=== PATIENT | female | born 1980 | race Caucasian/White ===

== ENCOUNTER 2017-10-20 07:09 | Observation (INO) ==
[2017-10-20] MEDS ORDERED: 0.9 % Sodium Chloride 1,000 ML IVC ONE (07:22)
[2017-10-20] MEDS ORDERED: Isovue-370 500 ML INFUS..BTL IV ONE ×2 (07:23→07:24)
--- NOTE | 2017-10-20 07:29 | Emergency Department Note ---
Disposition Clinical Impression: Left-sided weakness CVA (cerebral vascular accident) Qualifiers: CVA mechanism: unspecified Qualified Code(s): I63.9 - Cerebral infarction, unspecified Disposition: Admitted As Inpatient Condition: Fair Referrals: Gwen Arguello [Primary Care Provider] - Eddie Christianson [Family Provider] - Forms: ED Satisfaction Letter Time of Disposition: 09:08 Neuro HPI - General Chief Complaint: ED Neuro Symptoms/Deficit Stated Complaint: CP, L arm and leg weakness Time Seen by Provider: 10/20/17 07:12 Source: patient, family Mode of arrival: ambulatory Limitations: no limitations Nursing Notes Reviewed: Yes Vital Signs Reviewed: Yes - History of Present Illness HPI Narrative: 37-year-old female otherwise healthy presents for evaluation of neuro symptoms. Patient states that she developed left arm weakness and contractures approximately 2 hours prior to arrival. Patient also has decreased sensation of her left side with some weakness of her left lower extremity. Patient denies any fevers. Denies any other localized weakness. No slurred speech or facial droop. Patient did state she had some chest pain prior to the onset of the symptoms. 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 Patient denies any abdominal pain. Patient denies history of strokes or heart attacks. - Related Data Home Medications: Home Medications Medication Instructions Recorded Confirmed No Known Home Drugs 10/20/17 10/20/17 Allergies/Adverse Reactions: Allergies Allergy/AdvReac Type Severity Reaction Status Date / Time No Known Allergies Allergy Verified 10/20/17 07:12 All systems ED: reviewed and negative except as stated. Constitutional: Denies: fever Cardiovascular: Reports: chest pain Respiratory: Denies: cough, dyspnea Gastrointestinal: Denies: abdominal pain, nausea, vomiting Past Medical History - Past Medical History Source: patient Medical history: Reports: no medical history Psychiatric history: Reports: no psych history - Social History Smoking Status: Current every day smoker Alcohol use: Reports: none Drug use: Reports: none Physical Exam - General Limitations: no limitations General appearance: in no apparent distress, anxious - Head Head exam: atraumatic, normocephalic, normal inspection - Eye Eye exam: Present: normal appearance, PERRL, EOMI - ENT ENT exam: normal exam, mucous membranes moist - Neck Neck exam: Present: normal inspection - Chest Chest inspection: Present: normal inspection, symmetric chest wall rise - Respiratory Respiratory exam: Present: normal lung sounds bilaterally. Absent: respiratory distress - Cardiovascular Cardiovascular exam: Present: regular rate, normal rhythm. Absent: systolic murmur - Abdominal Exam Abdominal exam: Present: soft - Expanded Lower Extremity Exam Neurovascular/Tendon exam: Present: normal capillary refill. Absent: pulse deficit - Neurological Exam Neurological exam: Present: alert, oriented X3, CN II-XII intact - Expanded Neurological Exam Patient oriented to: Present: person Speech: Present: fluid speech Cranial nerves: EOM function (II, III, IV, ): Normal, facial sensation (V): Normal, facial palsy (VII): Normal, spinal accessory function (XI): Normal Cerebellar function: finger to nose: Normal Motor strength - LUE: 4/5 (Held in contracture of the elbow) Motor strength - RUE: 5/5 Motor strength - LLE: 4/5 Motor strength - RLE: 5/5 Sensory exam upper extremity: light touch: Abnormal Left Sensory exam lower extremity: light touch: Abnormal Left Coma Scale Eye Opening: Spontaneous Coma Scale Motor Response: Obeys Commands Coma Scale Verbal Response: Oriented Coma Scale Total: 15 Course Course Narrative: Patient seen and examined. Patient does have neurologic deficits. Sensory deficits on the left upper and lower show me with contracture of the left upper extremity. Stroke alert was called upon arrival. Given the patient's age as well as initial prodromal chest pain. CT angiogram of the neck and the head was obtained. - Reevaluation(s) Reevaluation #1: Patient seen and examined. Patient's resting comfortably. Time: 08:03 Reevaluation #2: Patient was seen and examined. Patient's resting comfortably. Neuro exam is unchanged. Discussed plan of care with the patient. Patient will be admitted the hospital service for further evaluation monitoring. Discussed CT findings and workup to date. Time: 09:07 - Consultations Consultation #1: Negative CTH per radiology. Time: 07:54 Consultation #2: Spoke with [facility] neurology who will evaluate the patient. Time: 08:00 Consultation #3: No TPA candidate per [facility] neurology. Time: 08:15 Vital Signs Temperature 98.3 F 10/20/17 07:10 Pulse Rate 73 10/20/17 07:10 Respiratory Rate 20 10/20/17 07:10 Blood Pressure 129/87 10/20/17 07:10 O2 Sat by Pulse Oximetry 100 10/20/17 07:10 Temperature 98.3 F 10/20/17 07:13 Pulse Rate 70 10/20/17 09:30 Respiratory Rate 20 10/20/17 09:30 Blood Pressure 118/70 10/20/17 09:30 O2 Sat by Pulse Oximetry 98 10/20/17 09:30 Oxygen Delivery Oxygen Delivery Room Air Neuro Symptoms/Deficit - MDM Narrative Medical decision making narrative: Patient presents with acute neurologic deficits probably 2 hours prior to ED arrival. Patient was a stroke alert upon arrival. Patient was evaluated by [facility] neurology Javon the patient not to be a TPA candidate. States that this is less likely central cause of her symptoms. However recommends continuing stroke evaluation with an MRI. Patient likely has peripheral cause of her deficits. Patient will be given aspirin. Patient will also be admitted to the hospitals for further evaluation and monitoring. At this point the patient's been resting comfortably in the ED with no acute distress. - Lab Data Lab results reviewed: Yes I reviewed the patient's lab results. Result diagrams: 10/20/17 07:23 10/20/17 07:23 Lab Results 10/20/17 10/20/17 10/20/17 Range/Units 07:23 07:23 07:23 WBC 13.2 H (4.3-11.1) K/mcL RBC 4.83 (3.82-4.97) M/mcL Hgb 15.0 (11.5-15.4) g/dL Hct 44.0 (35.3-44.9) % MCV 91.1 (83.0-100.0) fL MCH 31.1 (28.0-33.3) pg MCHC 34.1 (31.6-35.5) g/dL RDW 12.4 (11.5-14.5) % Plt Count 335 (140-400) K/mcL MPV 9.9 (9.4-12.4) fL Immature Gran % 0.7 (0-4) % Seg Neutrophils % 62.5 % Lymphocytes % 22.3 % Monocytes % 8.7 % Eosinophils % 5.3 % Basophils % 0.5 % Neutrophils # 8.3 (1.6-8.9) K/mcL Lymphocytes # 3.0 (0.6-4.6) K/mcL Monocytes # 1.2 (0.0-1.3) K/mcL Eosinophils # 0.7 H (0.0-0.6) K/mcL Basophils # 0.1 (0.0-0.2) K/mcL PT 12.7 H (9.4-12.1) Seconds INR 1.1 APTT 41.0 H (26.0-36.0) Seconds Sodium 138 (136-145) mEq/L Potassium 3.8 (3.5-5.1) mEq/L Chloride 106 (98-107) mEq/L Carbon Dioxide 27 (23-29) mEq/L BUN 18 (6-20) mg/dL Creatinine 1.03 (0.60-1.20) mg/dL Est GFR ( Amer) > 60 (> 60) Est GFR (Non-Af Amer) > 60 (> 60) BUN/Creatinine Ratio 17 (6-26) Glucose 99 (70-105) mg/dL Calculated Osmolality 288 (280-300) Calcium 9.5 (8.6-10.3) mg/dL Troponin I < 0.03 (< 0.04) ng/mL - Radiology Data Radiology results reviewed: Yes I reviewed the patient's radiology results. - EKG Data EKG attestation: Yes I reviewed and interpreted this EKG. EKG shows normal: sinus rhythm Rate: normal Rhythm: NSR Bates/QRS: normal Voltage: increased voltage throughout T wave inversions noted in: v1 Interpretation: no acute changes, nonspecific ST-T wave changes NIH Stroke Scale - Level of Consciousness LOC: Alert - LOC Questions LOC Questions: Answers both correctly - LOC Commands LOC Commands: Performs both correctly - Best Gaze Best Gaze: Normal - Visual Visual: No visual loss - Facial Palsy Facial Palsy: Normal - Motor Arms Motor Arm-Left: Some effort against gravity, limb drifts to bed Motor Arm-Right: No drift for 10 seconds - Motor Legs Motor Leg-Left: No drift for 5 seconds Motor Leg-Right: No drift for 5 seconds - Limb Ataxia Limb Ataxia: Absent of affected limb too weak to perform exam - Sensory Sensory: Mild to moderate loss, "not as sharp" - Best Language Best Language: No aphasia - Dysarthria Dysarthria: Normal - Extinction and Inattention Extinction and Inattention: Normal - NIHSS Total Score NIHSS Total Score: 3 TPA Checklist - Eligibilty for IV tPA 1. LKW equal to or less than 4.5 hours be before treatment: No 2. Clinical diagnosis of ischemic stroke causing deficit: No 3. Age 18 years or older: No - LKW: 3-4.5 hrs Add. Warnings/Precautions Patient/family understanding: The patient/family members have been counseled and understood the risk, benefit , and alternatives of treatment. Drew - Drew Situation: Demographics Background: Presenting Complaint Assessment: Vital Signs, Patient/Family Expectation Recommendation: Barrier(s) to disposition, Recommendation based on pending studies, treatments, or consults S.[email or web address] Report Given to: Dr. Roberto Russell Repor Time: 09:48
[2017-10-20 07:30] LABS: Basophils # 0.1 K/mcL (0.0-0.2); Basophils % 0.5 %; Eosinophils # 0.7 K/mcL (0.0-0.6); Eosinophils % 5.3 %; Immature Granulocytes % 0.7 % (0-4); Lymphocytes % 22.3 %; Mean Corpuscular HGB Conc 34.1 g/dL (31.6-35.5); Mean Corpuscular Hemoglobin 31.1 pg (28.0-33.3); Mean Corpuscular Volume 91.1 fL (83.0-100.0); Mean Platelet Volume 9.9 fL (9.4-12.4); Monocytes # 1.2 K/mcL (0.0-1.3); Monocytes % 8.7 %; Neutrophils # 8.3 K/mcL (1.6-8.9); Platelet Count 335 K/mcL (140-400); Red Blood Count 4.83 M/mcL (3.82-4.97); Red Cell Distribution Width 12.4 % (11.5-14.5); Segmented Neutrophils % 62.5 %
[2017-10-20 07:37] LABS: INR 1.1; Prothrombin Time 12.7 Seconds (9.4-12.1)
[2017-10-20 07:46] LABS: BUN/Creatinine Ratio 17 (6-26); Blood Urea Nitrogen 18 mg/dL (6-20); Calcium 9.5 mg/dL (8.6-10.3); Carbon Dioxide 27 mEq/L (23-29); Chloride 106 mEq/L (98-107); Glucose 99 mg/dL (70-105); Osmolality,Calculated 288 (280-300); Potassium 3.8 mEq/L (3.5-5.1); Sodium 138 mEq/L (136-145); eGFR For Non-African Americans > 60 (> 60)
[2017-10-20 07:49] LABS: Troponin I < 0.03 ng/mL (< 0.04)
[2017-10-20] MEDS ORDERED: Aspirin 81 MG TAB.CHEW PO ONE (08:14)
--- NOTE | 2017-10-20 09:07 | Emergency Department Note ---
Disposition Clinical Impression: Left-sided weakness CVA (cerebral vascular accident) Qualifiers: CVA mechanism: unspecified Qualified Code(s): I63.9 - Cerebral infarction, unspecified Disposition: Admitted As Inpatient Condition: Fair Referrals: Gwen Arguello [Primary Care Provider] - Eddie Christianson [Family Provider] - Forms: ED Satisfaction Letter General Adult HPI - General Chief complaint: ED Neuro Symptoms/Deficit Stated complaint: CP, L arm and leg weakness Time Seen by Provider: 10/20/17 07:12 Source: patient, family Mode of arrival: ambulatory Limitations: no limitations - History of Present Illness Pain Scale: 10 - Related Data Home Medications Medication Instructions Recorded Confirmed No Known Home Drugs 10/20/17 10/20/17 Allergies Allergy/AdvReac Type Severity Reaction Status Date / Time No Known Allergies Allergy Verified 10/20/17 07:12 Constitutional: Denies: fever Cardiovascular: Reports: chest pain Respiratory: Denies: cough, dyspnea Gastrointestinal: Denies: abdominal pain, nausea, vomiting Past Medical History - Past Medical History Medical history: Reports: no medical history Psychiatric history: Reports: no psych history - Social History Smoking Status: Current every day smoker Alcohol use: Reports: none Drug use: Reports: none Physical Exam - General Limitations: no limitations General appearance: in no apparent distress, anxious Course - Reevaluation(s) Reevaluation #1: Attestation note I examined this patient and my medical decision-making was reviewed with the emergency medicine resident. I agree with the documented findings, disposition and treatment plan as described except to the extent set forth below. Patient seen with emergency medicine resident Alison Beverly, Please see a copy of his note for details of the H&P, ED evaluation, management and disposition. I have independently evaluated the patient and confirmed appropriate portions of the history and physical exam. Briefly: 47-year-old female on no other past medical history presents with onset at 2 hours ago of rigidity and pain and weakness of her left upper extremity and left lower extremity and chest pain. Cranial nerves are normal no prior history of CVA patient does not use illicit drugs there has been no trauma no occupational issues. Patient had noncontrast head CT read by radiology as no acute process. Labs the normal limits EKG shows sinus rhythm no acute ischemic changes. Due to the fact that the patient had to but appeared to be heart neuro findings as far as inability to extend the left upper extremity and is right-hand dominant visual and weakness in the hand and the forearm stroke alert was called [place] stroke was initiated the neurologist from the [facility] evaluated the patient and felt this was not eligible for TPA and in fact suggested possible conversion disorder. Patient was agreeable for admission here for further observation and workup. Provided 35 minutes critical care service for this patient. Admission disposition pending Time: 09:05 Vital Signs Temperature 98.3 F 10/20/17 07:10 Pulse Rate 73 10/20/17 07:10 Respiratory Rate 20 10/20/17 07:10 Blood Pressure 129/87 10/20/17 07:10 O2 Sat by Pulse Oximetry 100 10/20/17 07:10 Temperature 98.3 F 10/20/17 07:13 Pulse Rate 71 10/20/17 08:30 Respiratory Rate 20 10/20/17 08:30 Blood Pressure 128/93 10/20/17 08:30 O2 Sat by Pulse Oximetry 98 10/20/17 08:30 Oxygen Delivery Oxygen Delivery Room Air Medical Decision Making - Lab Data Result diagrams: 10/20/17 07:23 10/20/17 07:23 Lab Results 10/20/17 10/20/17 10/20/17 Range/Units 07:23 07:23 07:23 WBC 13.2 H (4.3-11.1) K/mcL RBC 4.83 (3.82-4.97) M/mcL Hgb 15.0 (11.5-15.4) g/dL Hct 44.0 (35.3-44.9) % MCV 91.1 (83.0-100.0) fL MCH 31.1 (28.0-33.3) pg MCHC 34.1 (31.6-35.5) g/dL RDW 12.4 (11.5-14.5) % Plt Count 335 (140-400) K/mcL MPV 9.9 (9.4-12.4) fL Immature Gran % 0.7 (0-4) % Seg Neutrophils % 62.5 % Lymphocytes % 22.3 % Monocytes % 8.7 % Eosinophils % 5.3 % Basophils % 0.5 % Neutrophils # 8.3 (1.6-8.9) K/mcL Lymphocytes # 3.0 (0.6-4.6) K/mcL Monocytes # 1.2 (0.0-1.3) K/mcL Eosinophils # 0.7 H (0.0-0.6) K/mcL Basophils # 0.1 (0.0-0.2) K/mcL PT 12.7 H (9.4-12.1) Seconds INR 1.1 APTT 41.0 H (26.0-36.0) Seconds Sodium 138 (136-145) mEq/L Potassium 3.8 (3.5-5.1) mEq/L Chloride 106 (98-107) mEq/L Carbon Dioxide 27 (23-29) mEq/L BUN 18 (6-20) mg/dL Creatinine 1.03 (0.60-1.20) mg/dL Est GFR ( Amer) > 60 (> 60) Est GFR (Non-Af Amer) > 60 (> 60) BUN/Creatinine Ratio 17 (6-26) Glucose 99 (70-105) mg/dL Calculated Osmolality 288 (280-300) Calcium 9.5 (8.6-10.3) mg/dL Troponin I < 0.03 (< 0.04) ng/mL
[2017-10-20] MEDS ORDERED: *HR* Enoxaparin 120 MG/0.8 ML SYRINGE SQ STA (10:08)
--- NOTE | 2017-10-20 11:23 | Internal Med History&Physical ---
Date of Encounter: 10/20/17 Time of Encounter: 11:00 Internal Medicine - H&P: HPI Admitted From: Home Plans for Post Hospital Care: Home History of present illness: Ms. Mahoney is a 37 year old female that history of previous uUTI, left knee surgery who presented with LLE swelling. Pt reports that LLE swelling that developed a few days ago. 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 Pt denies any previous work up for DVT/ /such as doppler. She also denies any history DVT or PE. States while working all day yesterday, Thursday10/19/2017, she developed chest discomfort and LUE tingling sensation. Denies SOB, dizziness, or lightheadedness. Denies LUE edema. Denies neck or back pain. She denies of fever or chills, N/V, or diarrhea. Pt unaware of her fmhx as she is adopted. In ED pt was called into neuro call who did not think pt needed further CVA workup. Resident physician in ED did order CTA head and neck, results below Labs: WBS 13.2, Hgb 15.0, plt 335. PT 12.7, INR 1.1. Na 138, K 3.8, BUN 18, Cr 1.03 Troponin <0.03. Chest x ray Impression: Showed no significant findings. CTA head and neck CT/CT angio head IMPRESSION: No acute intracranial abnormality. Unremarkable CTA of the head and neck. D/ /20/2017 11:04:05 Leigha Gleason MD / dionicio CT head non-contrast CT/CT stroke alert head wo con IMPRESSION: No acute intracranial abnormality. Unremarkable CTA of the head and neck. D/ /20/2017 11:04:05 Leigha Gleason MD / dionicio Past Med Surg Social Fam HX - Past Medical History Medical history: no medical history Psychiatric history: no psych history - Past Surgical History Additional surgical history: left knee surgery - Social History Smoking Status: Current every day smoker Alcohol use: none Drug use: none Internal Medicine - H&P: Meds No Known Home Drugs 10/20/17 [History] 3 Allergy/AdvReac Type Severity Reaction Status Date / Time No Known Allergies Allergy Verified 10/20/17 07:12 All Systems PM: A 10-system review of systems was performed and is negative for pertinent findings except as documented above in the HPI. - Constitutional Vitals: Temp Pulse Resp BP Pulse Ox 98.3 F 70 20 116/80 99 10/20/17 07:13 10/20/17 10:58 10/20/17 11:02 10/20/17 11:02 10/20/17 10:30 General appearance: Present: A&O X 3, obese - Head Head exam: Present: atraumatic, normocephalic - Eye Eye exam: Present: PERRL, conjuntiva pink, sclera anicteric Pupils: Present: PERRL - Neck Neck exam general surgery: Present: supple, trachea midline. Absent: lymphadenopathy - Respiratory Respiratory exam: Present: CTAB. Absent: accessory muscle use, rales, rhonchi, wheezes - Cardiovascular Cardiovascular exam: Present: RRR, +S1, +S2. Absent: diastolic murmur, gallop, rubs, systolic murmur - GI/Abdominal GI/Abdominal exam: Present: normal bowel sounds, soft, no peritoneal signs. Absent: distended, tenderness - Extremities Exam Extremities exam: Present: warm, radial pulses palpable and symmetrical. Absent : calf tenderness, cyanotic, pedal edema - Neurological Exam Neurological exam: Present: CN II-XII intact, oriented X3, no focal deficits. Absent: pronater drift, facial droop, speech deficit - Skin Skin exam: Present: dry, intact Internal Med - H&P Results - Labs CBC & Chem 7: 10/20/17 07:23 10/20/17 07:23 - Assessment and plan (1) Chest pain Current Visit: Yes Status: Acute Assessment and plan: Initial troponin <0.03. Will cycle troponin. If Doppler positive for DVT, will check CTA chest as well. Pt saturation is currently 99% on room air. EKG ordered and pending. Chest x ray no significant findings. Qualifiers: Qualified Code(s): R07.9 - Chest pain, unspecified (2) Edema of left lower extremity Current Visit: Yes Status: Acute Assessment and plan: Checking LE doppler. Will give one time dose therapeutic Lovenox for now. (3) Left-sided weakness Current Visit: Yes Status: Acute Assessment and plan: Will check neck and left shoulder x ray. Will check MRI brain. (4) Obesity Current Visit: Yes Status: Acute Assessment and plan: Life style modification such as diet and exercise recommended. Qualifiers: Qualified Code(s): E66.9 - Obesity, unspecified (5) Leukocytosis Current Visit: Yes Status: Acute Assessment and plan: Likely reactive. Will check CBC in am and will send UA. Qualifiers: Qualified Code(s): D72.829 - Elevated white blood cell count, unspecified - Time Spent With Patient Total time spent is greater than 50% in coordination of care (as documented) at patient's floor/unit and/or counseling patient: 25 - 35 minutes
[2017-10-20] MEDS ORDERED: Nitroglycerin 0.4 MG TAB.SUBL SL PRN (12:15)
[2017-10-20] MEDS ORDERED: Acetaminophen 325 MG TABLET PO PRN (12:15)
[2017-10-20] MEDS ORDERED: Naloxone 0.4 MG/ML INJ IVP PRN (12:15)
[2017-10-20 14:07] LABS: Troponin I < 0.03 ng/mL (< 0.04)
[2017-10-20 14:20] LABS: Thyroid Stimulating Hormone 2.326 mcIU/mL (0.340-5.600)
[2017-10-20 21:02] LABS: Bilirubin,Urine Negative (Negative); Blood,Urine Negative (Negative); Clarity,Urine Clear (Clear); Color,Urine Yellow (Yellow); Glucose,Urine (UA) Normal (Normal); Ketones,Urine Negative (Negative); Leukocyte Esterase,Urine Negative (Negative); Nitrite,Urine Negative (Negative); PH,Urine 7.5 pH Units (5.0-8.0); Protein,Urine Negative (Neg-Trace); Urobilinogen,Urine Normal (Normal)
[2017-10-20 21:30] LABS: Amphetamine Screen,Urine Negative ng/mL (Cutoff=1000); Barbiturate Screen,Urine Negative ng/mL (Cutoff=200); Benzodiazepines Screen,Urine Negative ng/mL (Cutoff=200); Cannabinoid Screen,Urine Negative ng/mL (Cutoff = 50); Cocaine Screen,Urine Negative ng/mL (Cutoff= 300); Opiate Screen,Urine Negative ng/mL (Cutoff=300); Phencyclidine Screen,Urine Negative ng/mL (Cutoff=25)
[2017-10-21] MEDS ORDERED: Acetaminophen 325 MG TABLET PO PRN (00:14)
[2017-10-21 00:41] LABS: Basophils # 0.1 K/mcL (0.0-0.2); Basophils % 0.7 %; Eosinophils # 0.8 K/mcL (0.0-0.6); Eosinophils % 6.6 %; Hematocrit 37.2 % (35.3-44.9); Immature Granulocytes % 0.7 % (0-4); Lymphocytes # 3.4 K/mcL (0.6-4.6); Lymphocytes % 29.8 %; Mean Corpuscular HGB Conc 33.9 g/dL (31.6-35.5); Mean Corpuscular Hemoglobin 30.4 pg (28.0-33.3); Mean Corpuscular Volume 89.6 fL (83.0-100.0); Monocytes # 1.2 K/mcL (0.0-1.3); Monocytes % 10.7 %; Neutrophils # 5.9 K/mcL (1.6-8.9); Platelet Count 268 K/mcL (140-400); Red Blood Count 4.15 M/mcL (3.82-4.97); Red Cell Distribution Width 12.6 % (11.5-14.5); Segmented Neutrophils % 51.5 %
[2017-10-21 00:43] LABS: Hemoglobin 12.6 g/dL (11.5-15.4)
[2017-10-21 00:45] LABS: INR 1.2; Prothrombin Time 13.6 Seconds (9.4-12.1)
[2017-10-21 00:55] LABS: Troponin I < 0.03 ng/mL (< 0.04)
[2017-10-21 00:56] LABS: Alanine Aminotransferase 9 Units/L (7-52); Albumin 3.5 g/dL (3.5-5.7); Albumin/Globulin Ratio 1.3 (1.1-2.2); Alkaline Phosphatase 73 Units/L (34-104); Aspartate Amino Transferase 13 Units/L (13-39); BUN/Creatinine Ratio 21 (6-26); Bilirubin,Total 0.3 mg/dL (0.3-1.0); Blood Urea Nitrogen 20 mg/dL (6-20); Calcium 8.8 mg/dL (8.6-10.3); Carbon Dioxide 25 mEq/L (23-29); Chloride 109 mEq/L (98-107); Chol/HDL Ratio 3.2 (0-4.9); Cholesterol 151 mg/dL (< 200); Globulin 2.6 g/dL (2.4-3.5); Glucose 114 mg/dL (70-105); HDL Cholesterol 47 mg/dL (40-59); LDL Cholesterol,Calculated 75 mg/dL (0-99); Magnesium 1.8 mg/dL (1.6-2.6); Osmolality,Calculated 289 (280-300); Potassium 3.8 mEq/L (3.5-5.1); Sodium 138 mEq/L (136-145); Total Protein 6.1 g/dL (6.4-8.9); Triglycerides 147 mg/dL (< 150); eGFR For Non-African Americans > 60 (> 60)
[2017-10-21] MEDS ORDERED: *HR* Enoxaparin 40 MG/0.4 ML SYRINGE SQ SCH (06:00)
[2017-10-21] MEDS ORDERED: Aspirin 81 MG TAB.CHEW PO SCH (09:00)
[2017-10-21 11:55] VITALS: BP 110/69
--- NOTE | 2017-10-21 12:00 | Discharge Summary ---
<Linad Ma - Last Filed: 10/21/17 13:58> Date of Encounter: 10/21/17 Time of Encounter: 11:56 - Discharge Diagnosis (1) Chest pain Priority: Primary Status: Acute Qualifiers: Qualified Code(s): R07.89 - Other chest pain; R07.8 - Other chest pain (2) Left-sided weakness Priority: Secondary Status: Acute (3) Edema of left lower extremity Priority: Secondary Status: Acute (4) Obesity Priority: Secondary Status: Acute Qualifiers: Obesity classification: adult class 3 (BMI >= 40) Serious obesity comorbidity presence: unspecified whether serious comorbidity present Qualified Code(s): E66.01 - Morbid (severe) obesity due to excess calories; Z68.41 - Body mass index (BMI) 40.0-44.9, adult Hospital course: Ms. Mahoney is a 37 year old female who presented to the emergency department on 10/20/17 with complaints of left-sided weakness, numbness and tingling including her leg and arm. Initial stroke workup was completed including contacting [facility] neurology who recommended MRI of the brain. CTA head was negative as well as bilateral DVT ultrasound, troponin, EKG, UA, UDS. Patient' s brain MRI revealed no acute or chronic ischemic changes. X-rays of her neck were also unremarkable. Neuro checks have been low with NIHSS up to 3 on admission. Upon exam the patient primarily complains of left-sided shoulder pain which is reproducible on exam over the lateral margins of the pectoralis major and with range of motion. 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 Likely her occupation is causing these symptoms as her pain is atypical, reproducible and ACS workup including troponin and EKG were unremarkable. Encouraged the use of NSAIDs, ice , heat and stretching as well as the use of compression socks and comfortable foot wear while at work. Importance of following up with her primary care physician within the next week was discussed. We will provide a work note as she is third shift and will be unable to make her shift tonight. Patient agrees with and understands the course of treatment plan including plan for discharge and follow-up. All questions answered. Discharge discussed with: patient, family Time spent discussing smoking cessation with patient: 3 to 10 minutes (patient states she is no longer a smoker and has not been for several years. Encouraged continued smoking cessation.) - Time Spent with Patient Total time spent providing and/or coordinating discharge services: Greater than 30 minutes - Discharge Medications Home Medications: No Known Home Drugs 10/20/17 [History] Allergies/Adverse Reactions: 3 Allergy/AdvReac Type Severity Reaction Status Date / Time No Known Allergies Allergy Verified 10/20/17 07:12 Date of admission: 10/20/17 10:59 Primary care physician: Gwen Arguello Discharging clinician: Linda Ma Anticipated date of discharge: 10/21/17 - Constitutional Vitals: Temp Pulse Resp BP Pulse Ox 98.0 F 53 16 110/69 98 10/21/17 11:15 10/21/17 11:15 10/21/17 11:15 10/21/17 11:15 10/21/17 11:15 General appearance: Present: A&O X 3, obese - Head Head exam: Present: atraumatic, normocephalic - Neck Neck exam general surgery: Present: supple, trachea midline. Absent: lymphadenopathy - Respiratory Respiratory exam: Present: CTAB. Absent: accessory muscle use, rales, rhonchi, wheezes - Cardiovascular Cardiovascular exam: Present: RRR, +S1, +S2. Absent: diastolic murmur, gallop, rubs, systolic murmur - GI/Abdominal GI/Abdominal exam: Present: normal bowel sounds, soft, no peritoneal signs. Absent: distended, tenderness - Extremities Exam Extremities exam: Present: full ROM (bilateral UE, LE). Absent: mottling, pedal edema, tenderness - Expanded Upper Extremities Exam Shoulder exam: Present: full ROM, tenderness (lateral border of pectoralis mucle ). Absent: crepitus, deformity, erythema - Neurological Exam Neurological exam: Present: CN II-XII intact, oriented X3, no focal deficits. Absent: pronater drift, facial droop, speech deficit - Psychiatric Psychiatric exam: Present: normal affect, normal mood. Absent: agitated - Patient Status Disposition: Home, Self-Care Condition: Good Overall status at discharge: patient is progressing back to baseline - Discharge Instructions Follow Up With: Gwen Arguello [Primary Care Provider] - 10/27/17 2:00 pm (Please follow up as schedule....) Eddie Christianson [Family Provider] - Additional Instructions: - Please take ibuprofen 600mg and tylenol 1000mg up to three times per day for management of your pain. - Please use ice and or heat to the area of pain. - Please use compression stockings and comfortable shoes when at work. Please remain well hydrated and avoid excessive soda intake. - Follow up with your primary care physician within the next week for further evaluation. - Diet and Activity Activity: increase activity as tolerated Diet: advance to your usual diet <Michela Pollack - Last Filed: 10/21/17 17:45> Date of Encounter: 10/21/17 Hospital course: Ms. Mahoney is a 37 year old female - Time Spent with Patient Total time spent providing and/or coordinating discharge services: Date of admission: 10/20/17 10:59 Primary care physician: Gwen Arguello - Constitutional Vitals: Temp Pulse Resp BP Pulse Ox 98.0 F 53 16 110/69 98 10/21/17 11:15 10/21/17 11:15 10/21/17 11:15 10/21/17 11:15 10/21/17 11:15 - Attending Attestation I examined this patient and my medical decision-making was reviewed with the Resident Physician Dr. Ma . I agree with the documented findings, disposition and treatment plan as described except to the extent set forth below. Ms. Mahoney is a 37 year old female who presented to the emergency department on 10/20/17 with complaints of left-sided weakness, numbness and tingling including her leg and arm. Initial stroke workup was completed including contacting [facility] neurology who recommended MRI of the brain. CTA head was negative as well as bilateral DVT ultrasound, troponin, EKG, UA, UDS. Patient' s brain MRI revealed no acute or chronic ischemic changes. Pt's symptoms also resolved. Her troponins are negative. No acute EKG changes noticed. So CVA and ACS ruled out. Her CP seems more like musculoskeletal. Gen: A, A, O x 3 Chest: Diminished BS B/l Heart; S1S2+ RRR Neuro: benign
--- NOTE | 2017-10-21 15:17 | Electrocardiograph Report ---
[address] [address] Test Date: 2017-10-20 Pat Name: Joyce Mahoney Department: 104 Room: 2A44 Gender: F [employer]ing: : 1980 Requested By: Caty Mejia Order Number: [id number] Reading MD: Jai Lugo Measurements Intervals [place] Rate: 76 P: 65 ND: 169 QRS: -35 QRSD: 72 T: 27 QT: 349 QTc: 380 Interpretive Statements SINUS RHYTHM MARKED LEFT AXIS DEVIATION LOW QRS VOLTAGE IN PRECORDIAL LEADS BASELINE ARTIFACT Electronically Signed On 10-21-2017 15:15:33 EDT by Jai Lugo
== END 2017-10-21 14:50 | disposition home or self-care (01) ==
LOC: EMEROO 07:09 → 2ANU 07:09
PROVIDERS: ADMIT Internal Medicine; ATTEND Internal Medicine